=== PATIENT | male | born 1960 | race Caucasian/White ===

== ENCOUNTER → 2024-08-17 08:19 | Outpatient (REF) | payer OTHER, SELFPAY | LOC: DHCBC/DCA 08:19 | PROVIDERS: ATTENDING PHYSICIAN Internal Medicine; FAMILY PHYSICIAN Family Medicine | DX: I25.10 Atherosclerotic heart disease of native coronary artery without angina pectoris (principal) | CPT/HCPCS: 78452; 93017; A9500; J2785 ==

== ENCOUNTER → 2024-08-26 13:01 | Outpatient (REF) | payer OTHER, SELFPAY ==
--- NOTE | 2024-08-26 15:06 | CARDSERVDEF ---
Echocardiogram with Definity completed after protocol screening completed. Allergies verified.
Patent IV site: _Left hand metacarpal 22 G PC ____
IV site flushed with 0.9% NaCl pre and post administration.
Diluted bolus method utilized to enhance visualization of ventricular moct[place].
Total volume given: __4__ mL
Patient tolerated all procedures well without complications.
Heplock D/C ed at 1452, site clear, no redness, no edema. Pressure held, no bleeding, 2x2 applied and taped. Pt offers no complaints.
== END ==
LOC: RCS 13:01
PROVIDERS: ATTENDING PHYSICIAN Internal Medicine; FAMILY PHYSICIAN Family Medicine
DX: I25.10 Atherosclerotic heart disease of native coronary artery without angina pectoris (principal); I25.5 Ischemic cardiomyopathy
CPT/HCPCS: 93307; Q9957

== ENCOUNTER → 2025-02-25 06:34 | Outpatient (REF) | payer OTHER, SELFPAY | LOC: RAD 06:34 | PROVIDERS: ATTENDING PHYSICIAN Internal Medicine; FAMILY PHYSICIAN Family Medicine | DX: R20.9 Unspecified disturbances of skin sensation (principal) | CPT/HCPCS: 76770; 93922; 93925 ==

== ENCOUNTER → 2025-03-11 08:08 | Outpatient (REF) | payer OTHER, SELFPAY | LOC: RCS 08:08 | PROVIDERS: ATTENDING PHYSICIAN Internal Medicine; FAMILY PHYSICIAN Family Medicine | DX: I25.10 Atherosclerotic heart disease of native coronary artery without angina pectoris (principal); I25.5 Ischemic cardiomyopathy | CPT/HCPCS: 93306; Q9950 ==

== ENCOUNTER 2025-04-22 06:19 | Day surgery (SDC) | payer OTHER, SELFPAY ==
[2025-04-22] VITALS (9 sets, daily range): BP systolic 91–128; BP diastolic 52–90
[2025-04-22] MEDS: NSS 500 IV (07:12)
--- NOTE | 2025-04-22 07:57 | W.ICD.CONTRA ---
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
-
History of AR?: No
LV Function
Left ventricular function study result?: Ejection Fraction </= 35%
ACEI/ARB/ARNI
Patient already on ACEI/ARB/ARNI: Yes
Beta-Karime
Patient already on Beta Karime: Yes
[2025-04-22] MEDS: ULTRAM 50 MG PO (13:12)
--- NOTE | 2025-04-22 14:43 | W.PN.UPDATE ---
Update Note
Progress Note Update
64 yo WM s/p BIV ICD (same day). He denies cp, sob, sebastian diet, mild inc pain relief with Ultram, CXR no PTX, EKG AsVpaced. He will continue GDMT for HF toprol, valsartan, spironolactone. Activity restrictions reviewed. He will have incision check in
1 week at [facility]. He is for d/c home after 4p and another dose of Antibiotics.
--- NOTE | 2025-04-22 14:54 | ITS.CL.ICD ---
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
Implantable Cardioverter Defibrillator
Procedure Report:
Date of Procedure: April 22, 2025.
Procedures: BiV ICD implant.
Indication: Primary prevention ICD. NYHA heart failure class 3 for more than 9 months. LVEF 30-35%. QRS duration 144 ms with a LBBB. No history of VT or VF. Mixed ischemic and non-ischemic cardiomyopathy. No history of prior IA. Life expectancy
exceeds [address] Mod[address] aortic stenosis. Dr. Mendoza reviewed the rational for ICD with DATABASE MARKETING SPECIALIST with the patinet and together they chose to proceed with device implant. I reviewed all risks/beneftits/alternatives and after answering all of his
questions signed consent was obtained.
Performing physician: Aden Viera MD, [facility].
Implants:
Pulse Generator: Medtronic; Model# [id number]; Serial# [id number].
Atrial Lead: Medtronic: Model# 5076-52cm; Serial# [id number].
Right Ventricular Lead: Medtronic; Model# 8615H33; Serial# [id number].
Cardiac resynchronization ventricular lead: Medtronic; Model# 3830-69cm; Serial# [id number].
Technique: A time out was performed. The procedure site was identified. The patient was anesthetized by the anesthesia service. Preoperative cefazolin was administered. The patient was prepped and draped in the usual fashion. Local anesthetic was
applied to the left prepectoral subcutaneous tissue. A 3 inch incision was made along the left deltopectoral groove. Dissection was carried to the fascia. The left cephalic vein was not isolated despite careful dissection the deltopectoral fat pad
was not identified despite identifying both the pectoralis and deltoid muscles. I moved to a axillary vein approach for venous access. The left axillary vein was accessed with three separate percutaneous micro- punctures without difficulty. The
leads were introduced with hemostatic peel away introducer sheaths. The right ventricular lead high voltage lead was placed at the right ventricular apical septum. The ventricular lead was secured to the pectoralis muscle and fascia with two 0-silk
sutures. The atrial lead was then placed in the right atrial appendage. The atrial lead was secured to the pectoralis muscle and fascia with two 0-silk sutures. The coronary sinus was not successfully accessed despite the use of the Attain Command
Sure Valve 6250VC system with both the EH and MP sheaths. The RV lead was placed using utilizing the [employer] His delivery catheter ([id number]) that was advanced to the left bundle area as confirmed by fluoroscopy in the JAIME and SUGGS projections. The
lead tip was advanced. PVC morphology was reviewed. When a satisfactory location was identified (W pattern observed) the lead was screwed into position with serial turns. Septal engagement was confirmed with gentle torque applied to the guide
sheath. After each series of turns (2-3) unipolar sensed morphology and impedance, and paced morphology of V1 was analyzed. The lead was further advanced until satisfactory morphology and electrical characteristics were confirmed. The basal and mid
RV septums were mapped but were not successful. The RV lead was placed in about the 6th location evaluated which was an apical septal location with the tip not in contact with the high voltage lead. The long guiding sheath was cut and removed from
the RV without change in lead position, impedance, sensing, or capture. 8 volt pacing did not capture the diaphragm from any lead. A subcutaneous pocket was created with Bovie cautery. Hemostasis was excellent. The leads were appropriately attached
to the device. The pocket was irrigated with antibiotic solution. The device and leads were placed in the pocket. A [employer], TYRX Absorbable Antibacterial Envelope was placed in the pocket, (Ref [id number]; Lot [id number]). The incision was closed in
three layers with absorbable suture. Steri-strips and a a silver impregnated dressing were placed. Estimated blood loss 15 ml. There were no complications. Fluoroscopy time: 24.7 minutes and DAP 17.5 GyCM2. The device was then interrogated after
skin closure. No IV contrast was administered.
System Analysis:
RA lead: P: 1 mV; Threshold: 1.25 V @ 0.4 ms; Impedance: 650 ohms.
RV lead: R: 11 mV; Threshold: 0.5 V @ 0.4 ms; Impedance: 580 ohms.
LV lead: R: 6 mV; Threshold: 1 V @ 0.4 ms; Impedance: 850 ohms.
Conduction system (3820) lead characteristics: Paced QRS characteristics: V1 has Qr morphology and measures 130 ms in duration, LVAT (stim to peak R in V5/V6) is 74 ms, and R peak V1 to R peak V6 is 63 ms.
Final Programming: Tachy: VT/VF:188 bpm; Gasper: DDDR 60-120 bpm.
Conclusion: Uncomplicated BiV ICD implant. The ICD system is MRI safe/conditional.
Recommendation: Routine post ICD care.
cc: Chris Mendoza MD and Jaspreet England MD.
[2025-04-22] MEDS: ANCEF 5 IV (15:52)
== END 2025-04-22 15:56 | disposition home or self-care (01) ==
LOC: CATH 06:19
PROVIDERS: ATTENDING PHYSICIAN Internal Medicine Cardiovascular Disease; FAMILY PHYSICIAN Family Medicine
DX: I50.22 Chronic systolic (congestive) heart failure (principal); I44.7 Left bundle-branch block, unspecified; I25.5 Ischemic cardiomyopathy; I10 Essential (primary) hypertension; I42.8 Other cardiomyopathies; I35.0 Nonrheumatic aortic (valve) stenosis; M19.011 Primary osteoarthritis, right shoulder; M47.812 Spondylosis without myelopathy or radiculopathy, cervical region; I11.0 Hypertensive heart disease with heart failure; I25.10 Atherosclerotic heart disease of native coronary artery without angina pectoris; F17.210 Nicotine dependence, cigarettes, uncomplicated; Z79.82 Long term (current) use of aspirin; Z79.899 Other long term (current) drug therapy; J44.9 Chronic obstructive pulmonary disease, unspecified; Z88.2 Allergy status to sulfonamides; Z88.8 Allergy status to other drugs, medicaments and biological substances; Z91.041 Radiographic dye allergy status
CPT/HCPCS: 33249; 33225; 71045; 93005; C1769; C1777; C1882; C1887; C1892; C1898